=== PATIENT | male | born 1940 | race Caucasian/White ===

== ENCOUNTER 2017-08-17 06:08 | Day surgery (SDC) | payer MEDICARE ==
[2017-08-17 06:32] VITALS: BMI 30.2
[2017-08-17 06:52] VITALS: TEMP 97.8
[2017-08-17] MEDS ORDERED: Propofol 10 mg/ml Inj (20 ML) ONE ×2 (08:09→08:32)
[2017-08-17] MEDS ORDERED: Lidocaine Hydrochloride 5 ML INJ ONE (08:09)
[2017-08-17] MEDS ORDERED: Lactated Ringer's 1,000 ML IV ONE (08:15)
[2017-08-17] MEDS ORDERED: ePHEDrine 50 mg/ml Inj ONE (08:17)
--- NOTE | 2017-08-17 08:22 | CP.SDSHP ---
Same Day Surgery H & P - History Proposed Procedure: High risk screening colonoscopy Pre-Op Diagnosis: History of colon polyps - Previous Medical/Surgical History Cardiac: Hypertension Previous Surgical History: Back surgery - Allergies Allergies: Allergies No Known Allergies Allergy (Verified 08/17/17 06:29) - Current Medications Current Medications: See reconciliation sheet - Physical Exam General Appearance: WD WN male in NAD Vital Signs: Vital Signs 08/17/17 06:32 Temperature 97.8 F Pulse Rate 80 Respiratory 20 Rate Blood Pressure 144/75 O2 Sat by Pulse 98 Oximetry Mental Status: Alert & Oriented x3 Neuro: WNL Heart: WNL Lungs: WNL GI: WNL - {Optional Preform as Required} Abdomen: WNL - Impression Impression: History of colon polyps Pt. Evaluated Today:Candidate for Anesthesia & Procedure: Yes - Date & Time Date: 08/17/17 Time: 08:22 Short Stay Discharge - Short Stay Discharge Admitting Diagnosis/Reason for Visit: PERSONAL HISTORY OF COLON POLYPS Disposition: HOME/ ROUTINE
[2017-08-17 09:18] VITALS: O2SAT 99
[2017-08-18 09:20] VITALS: BP 120/65; PULSE 66; RESP 15
== END 2017-08-17 12:45 | disposition home or self-care (01) ==
LOC: C.ENDO 06:08
PROVIDERS: ATTEND Internal Medicine Gastroenterology
DX: K57.90 Diverticulosis of intestine, part unspecified, without perforation or abscess without bleeding (principal); D12.2 Benign neoplasm of ascending colon
CPT/HCPCS: 45388; 88305; J2704; J7120